=== PATIENT | male | born 1950 | race Caucasian/White ===

== ENCOUNTER → 2020-08-12 10:03 | Outpatient (CLI) | payer BC, SELFPAY ==
[2020-08-12 11:37] LABS: PSA,Total- Diagnostic 7.34 ng/mL (0.0-4.0)
[2020-08-13 15:27] LABS: PSA, Free 0.73 ng/mL; PSA, Free % 10.7 % (.); PSA, Total Ultrasensitive 6.8 ng/mL (0.0-4.0)
== END ==
PROVIDERS: PCP Physician Assistant; Referring Provider Nurse Practitioner Adult Health; Visit Provider Nurse Practitioner Adult Health
DX: R97.20 Elevated prostate specific antigen [PSA] (principal)
CPT/HCPCS: 36415; 84153; 84154

== ENCOUNTER → 2020-09-02 08:00 | Outpatient (CLI) | payer BC, SELFPAY ==
--- NOTE | 2020-09-02 | PROSBIL_PTH ---
PATIENT: CAMMY YANCEY LOC: [facility] U#:[id number] AGE/SX: 75/M ROOM: RE09/02/[address]: Dr. Young Huggins MD : 1950 BED: DIS: SPEC #: [id number] RECD: 09/02/20 12:03 STATUS: NORMA CUCO #: [id number] TORSTEN: 09/02/20 00:[address]: Young Huggins DEPT: SURGICAL PATHOLOGY RECD BY: Ajay Kee ENTERED: 09/02/20 12:03 SP TYPE: PROST BX NEMESIO DR: JOSE Perez Tissues: A - PROSTATE RIGHT B - PROSTATE RIGHT C - PROSTATE RIGHT D - PROSTATE LEFT E - PROSTATE LEFT F - PROSTATE LEFT Procedures: PROSTATE BX HEADER OPERATION: Prostate biopsy PRE-OP DIAGNOSIS: Elevated PSA TISSUE SUBMITTED: A - Right apex, B - Right mid, C - Right base, D - Left apex, E - Left mid, F - Left base MICROSCOPIC DIAGNOSIS A. Right prostate, apex, core biopsy: Prostatic tissue, negative for malignancy. B. Right prostate, mid, core biopsy: Prostatic tissue, negative for malignancy. C. Right prostate, base, core biopsy: Prostatic tissue, negative for malignancy. D. Left prostate, apex, core biopsy: Prostatic tissue, negative for malignancy. E. Left prostate, mid, core biopsy: Prostatic tissue, negative for malignancy. F. Left prostate, base, core biopsy: Prostatic tissue, negative for malignancy. SJ:brittani 09/03/20 MICROSCOPIC DESCRIPTION Slides are reviewed. GROSS DESCRIPTION A - Received is one container designated prostate, right apex. The specimen consists of one elongated fragment of light haji-white soft tissue measuring 0.8 cm in length and 0.1 cm in diameter. The specimen is totally submitted in one cassette. B - Received is one container designated prostate, right mid. The specimen consists of one elongated fragment of light haji-white soft tissue measuring 0.8 cm in length and 0.1 cm in diameter. The specimen is totally submitted in one cassette. C - Received is one container designated prostate, right base. The specimen consists of two elongated fragments of light haji-white soft tissue each measuring 0.5 cm in length and 0.1 cm in diameter. The specimen is totally submitted in one cassette. D - Received is one container designated prostate, left apex. The specimen consists of two elongated fragments of light haji-white soft tissue each measuring 0.7 cm in length and 0.1 cm in diameter. The specimen is totally submitted in one cassette. E - Received is one container designated prostate, left mid. The specimen consists of two elongated fragments of light haji-white soft tissue each measuring 0.8 cm in length and 0.1 cm in diameter. The specimen is totally submitted in one cassette. F - Received is one container designated prostate, left base. The specimen consists of two elongated fragments of light haji-white soft tissue each measuring 0.7 cm in length and 0.1 cm in diameter. The specimen is totally submitted in one cassette. / AM:brittani 09/02/20 TC:5 CPT: 65487 x6
== END ==
PROVIDERS: PCP Physician Assistant; Referring Provider Urology; Visit Provider Urology
DX: R97.20 Elevated prostate specific antigen [PSA] (principal)
CPT/HCPCS: 88305; G0416

== ENCOUNTER → 2022-06-01 | Outpatient (CLI) | payer MEDICARE, SELFPAY | END | disposition home or self-care (01) | LOC: LABSPEC 16:43 | PROVIDERS: PCP Physician Assistant; Visit Provider Urology | DX: R31.0 Gross hematuria (principal) | CPT/HCPCS: 87077; 87086; 87088; 87186 ==

== ENCOUNTER → 2022-06-04 | Outpatient (CLI) | payer MEDICARE, SELFPAY ==
--- NOTE | 2022-06-04 07:19 | CT_ITS ---
STUDY: CT ABDOMEN AND PELVIS WITHOUT CONTRAST REASON FOR EXAM: Male, 71 years old. HEMATURIA RADIATION DOSAGE (If Supplied By Facility): CTDIvol = ( 6.40 ) mGy, DLP = ( 324.54 ) mGycm TECHNIQUE: Transaxial images were obtained from the dome of the diaphragm to the symphysis pubis without oral contrast, and without intravenous contrast. Sagittal and coronal images were reconstructed. Individualized dose optimization techniques were used for this CT. COMPARISON: None. FINDINGS: The visualized lung bases are unremarkable. The visualized portions of the heart are within normal limits. Normal liver. Normal gallbladder and extrahepatic biliary system. Normal spleen. Normal pancreas. Normal bilateral adrenal glands. Normal right kidney. Normal left kidney. Normal visualized stomach. Normal small intestine. Normal colon. There is moderately abundant stool. The appendix is visualized and appears normal. There is diffuse atherosclerotic calcification of the abdominal aorta, without a demonstrated aneurysm. Normal inferior vena cava. Normal retroperitoneum. There is small calcification of the anterior wall of the urinary bladder. There are prostatic calcifications. There is no free fluid in the abdomen or pelvis. There is a left-sided inguinal hernia containing adipose tissue. There is degenerative postoperative change of the spine. There are bilateral pedicle screws fusing posteriorly at L4-5. There is hardware in the L3-[address]/Abdomen/Pelvis without Cont IMPRESSION: No stones or hydronephrosis. Calcifications in the prostate gland and the wall of the urinary bladder. Moderately abundant stool. No obstruction. Electronically Signed: Simeon Marcos MD at 8:09 EDT ,
== END | disposition home or self-care (01) ==
LOC: CT 07:16
PROVIDERS: PCP Physician Assistant; Referring Provider Urology; Visit Provider Urology
DX: R31.9 Hematuria, unspecified (principal)
CPT/HCPCS: 74176

== ENCOUNTER 2022-06-18 09:35 | Emergency (ER) | payer MEDICARE, SELFPAY ==
[2022-06-18 09:36] VITALS: BP 159/81; PULSE 93; RESP 18; TEMP 36.4; O2SAT 98
--- NOTE | 2022-06-18 09:57 | EX.ED.DYSGE1 ---
HPI History of Present Illness Chief Complaint: Complaint Informant: patient Onset/Context/Timing Onset: Today Context: Sudden Onset Timing: Continuous Quality: Burning, sharp Location: Lower abdomen Worsened by: Nothing Relieved by: Nothing Narrative Narrative: Patient presents with lower abdominal pain that began today. Patient states it is over his lower abdomen and radiates into his genital area. Patient describes it as burning but sharp at times. Patient states it is constant. Patient states nothing makes it better nothing makes it worse. Patient admits to some nausea but denies any vomiting. Patient admits to some urinary frequency but denies any dysuria. Patient states he does have some mild low back pain. Patient denies any fevers or chills. [facility] Medical History (Updated 06/18/22 @ 11:[address] Jonathon Elaine DO) Diabetes mellitus Hyperlipemia Hypertension Home Medications cephalexin 500 mg capsule 500 mg PO Q6 #20 CAPSULES 06/18/22 [Rx Last Taken Unknown] phenazopyridine 200 mg tablet (Pyridium) 200 mg PO TID #6 tabs 06/18/22 [Rx Last Taken Unknown] Allergy/AdvReac Type Severity Reaction Status Date / Time No Known Allergies Allergy Verified 06/18/22 09:38 Surgical History History of back surgery Social History Smoking Status: Never smoker ROS ROS ED Constitutional Constitutional ED: Denies chills or fever(s) Eyes Eyes: Denies blurry vision or change in vision ENT ENT ED: Denies rhinorrhea or sore throat Cardiovascular Cardiovascular: Denies chest pain or palpitations Respiratory/Chest Respiratory/Chest: Denies cough or dyspnea Gastrointestinal Gastrointestinal: Reports abdominal pain and nausea; Denies vomiting Genitourinary Genitourinary ED: Reports urinary frequency; Denies dysuria or hematuria Musculoskeletal Musculoskeletal: Reports back pain; Denies neck pain Integumentary Denies abscess or rash Neurologic Neurologic: Denies headache(s) or weakness Allergic/Immunologic Allergic/Immunologic ED: Denies mouth swelling or urticaria EXAM Physical Exam Const Vital Signs: 06/18/22 09:36 06/18/22 10:38 06/18/22 11:12 Temperature 97.6 F L 98.0 F 97.9 F Temperature Source Temporal Oral Oral Pulse Rate 93 90 78 Respiratory Rate 18 17 18 Blood Pressure 159/81 H 152/78 H 143/79 H Blood Pressure Mean 107 102 100 Pulse Ox 98 99 96 Oxygen Delivery Method Room Air Room Air Room Air Positive well nourished and well developed General Appearance ED: well developed HEENT Reports moist mucous membranes Neck supple and no JVD Resp normal respiratory effort and clear to auscultation bilaterally Cardio regular rate, regular rhythm and no murmurs GI normal to inspection, nondistended, normoactive bowel sounds Palpation: soft and tender LLQ, RLQ, LUQ, RUQ, periumbilical and suprapubic; Negative for guarding or rebound tenderness present Extremity normal to inspection General Extremety ED: Negative for edema or tenderness General Extremity: Negative for edema Neuro oriented x3, CN's II-XII intact bilaterally and no sensory deficits noted Sensorium / Orientation: alert Motor Exam: strength 5/5 throughout Psych mental status grossly normal Skin no rashes or lesions noted MDM MDM MDM Narrative Medical decision making narrative: CBC shows a mild anemia with a hemoglobin of 12.5 and hematocrit 37.2. Comprehensive metabolic profile showed a slightly elevated glucose of 259 but was otherwise within normal limits. Urinalysis shows a leukocyte esterase of 500 with 25-50 white blood cells and 2+ bacteria. There were positive nitrites. Occult blood was 150 with 10-25 red blood cells. Urine culture was ordered. Patient was given a dose of Rocephin here. Patient was given a prescription for Keflex. Patient was instructed to follow-up with Dr. Huggins in 3 to 5 days. Patient was also given a prescription for Pyridium. Patient understood and was agreeable with the plan. All questions were answered. Lab Data Attestation: I reviewed the patient's lab results. Labs: Laboratory Results - last 24 hr 06/18/22 06/18/22 06/18/22 10:15 10:15 10:35 WBC 7.8 RBC 4.07 L Hgb 12.5 L Hct 37.2 L MCV 91.4 MCH 30.7 MCHC 33.6 RDW Std Deviation 40.0 RDW Coeff of Nilda 11.9 Plt Count 276 MPV 10.8 Immature Gran % (Auto) 0.300 Neut % (Auto) 84.0 H Lymph % (Auto) 9.0 L Swain % (Auto) 6.3 Eos % (Auto) 0.1 Baso % (Auto) 0.3 Absolute Neuts (auto) 6.6 Absolute Lymphs (auto) 0.70 L Nucleated RBC % 0 Sodium 139 Potassium 4.2 Chloride 102 Carbon Dioxide 30.0 Anion Gap 7 BUN 23 H Creatinine 0.87 Estim Creat Clear Calc 7.39 Est GFR (MDRD) Af Amer 111 Est GFR (MDRD) Non-Af 92 BUN/Creatinine Ratio 26.6 H Glucose 259 H Calcium 9.4 Total Bilirubin 0.80 AST 9 L ALT 21 Alkaline Phosphatase 77 Total Protein 6.6 Albumin 3.6 Globulin 3.0 Albumin/Globulin Ratio 1.2 Urine Color Yellow Urine Clarity Sl. Cloudy Urine pH 7.0 Ur Specific [place] 1.010 Urine Protein 100 H Urine Glucose (UA) 1000 H Urine Ketones 15 H Urine Occult Blood 150 H Urine Nitrite Positive H Urine Bilirubin Negative Urine Urobilinogen Normal Ur Leukocyte Esterase 500 H Urine RBC 10-25 SEEN Urine WBC 25-50 SEEN Ur Squamous Epith Cells 0-5 SEEN Urine Bacteria 2+ Urine Mucus 1+ Discharge Plan Triage Chief Complaint: Complaint ED Provider: Jonathon Elaine Dx/Rx/DC Orders Clinical Impression: Urinary tract infection, Diabetes mellitus Instructions: ED Bladder Infection, Male (Adult), ED Urinary Tract Infections in Men Prescriptions: New phenazopyridine [Pyridium] 200 mg tablet 200 mg PO TID Qty: 6 0RF cephalexin [cephalexin] 500 mg capsule 500 mg PO Q6 Qty: 20 0RF Primary Care Provider: Orlando Magdaleno Referrals: Young Huggins MD [Med Staff - Active Staff] - 3-5 Days Orlando Magdaleno PA [Primary Care Provider] - 5-7 Days Disposition Disposition: Home, Self Care
[2022-06-18 10:27] LABS: Absolute Neutrophil Count 6.6 X10^3/uL (2.0-7.7); Basophil# 0.02 X10^3/uL; Basophil% 0.3 % (0-1); Eosinophil# 0.01 X10^3/uL; Eosinophils% 0.1 % (0-5); Hematocrit 37.2 % (40-54); Hemoglobin 12.5 g/dL (13.0-16.5); Mean Corp Hgb Conc 33.6 g/dL (32-36); Mean Corpuscular Hgb 30.7 pg (27.0-32.0); Mean Corpuscular Volume 91.4 fL (80-94); Mean Platelet Vol. 10.8 fl (6.2-12.0); Monocyte# 0.49 X10^3/uL; Monocyte% 6.3 % (0-10); NRBC Flagged by Analyzer 0 % (0-5); Neutrophil # 6.58 X10^3/uL (2.7-7.7); Platelet Count 276 K/mm3 (150-450); RBC Distribution Width CV 11.9 % (11.6-14.6); Red Blood Count 4.07 M/mm3 (4.6-6.2); White Blood Count 7.8 K/mm3 (4.4-11.0)
[2022-06-18 10:38] VITALS: BP 152/78; PULSE 90; RESP 17; TEMP 36.7; O2SAT 99
[2022-06-18 10:48] LABS: Color, Urine Yellow (Yellow); Glucose, Dipstick 1000 mg/dl (Normal); Ketone-Dipstick 15 mg/dl (Negative); Leukocyte Esterase-Dipstick 500 /ul (Negative); Nitrite-Dipstick Positive (Negative); Occult Blood-Urine 150 /ul (Negative); Protein-Dipstick 100 mg/dl (Negative); Urine Bilirubin Dipstick Negative (Negative); Urine Clarity Sl. Cloudy (Clear); Urine Urobilinogen Normal (Normal)
[2022-06-18 10:54] LABS: Bacteria 2+ /hpf (None Seen); Mucous, Urine 1+ /hpf (<or=2+); Red Blood Cells-Urine 10-25 SEEN /hpf (0-5); Squamous Epithelial Cells - UA 0-5 SEEN /hpf (0-5); White Blood Cells 25-50 SEEN /hpf (0-5)
[2022-06-18 11:03] LABS: ALB/GLOB Ratio 1.2 RATIO (0.9-2.4); AST(SGOT) 9 U/L (15-37); Alanine Aminotransfer ALT/SGPT 21 U/L (16-61); Albumin, Serum 3.6 g/dL (3.2-5.0); Alkaline Phosphatase 77 U/L (45-117); Anion Gap 7 (5-15); BUN 23 mg/dL (7-18); BUN/Creat Ratio 26.6 RATIO (10-20); Calcium,Total 9.4 mg/dL (8.5-10.1); Chloride 102 mmol/L (98-107); Creatinine, Serum 0.87 mg/dL (0.70-1.30); EST Glomerular Filtration Rate 92 mL/min (>60); Est Glom Filt Rate - Afr Amer 111 mL/min (>60); Estimated Creatinine Clearance 7.39 ml/min; Glucose 259 mg/dL (74-106); Potassium 4.2 mmol/L (3.5-5.1); Protein, Total 6.6 g/dL (6.4-8.2); Sodium Level 139 mmol/L (136-145)
[2022-06-18 11:12] VITALS: BP 143/79; PULSE 78; RESP 18; TEMP 36.6; O2SAT 96
[2022-06-18] MEDS: Ceftriaxone 1 GM/50 ML BAG IV (11:15)
[2022-06-18 12:01] VITALS: BP 161/77; PULSE 69; PULSE 85; PULSE 94; RESP 16; TEMP 36.5; O2SAT 97; O2SAT 99
== END 2022-06-18 12:07 | disposition home or self-care (01) ==
PROVIDERS: Emergency Provider Emergency Medicine; PCP Physician Assistant; Visit Provider Emergency Medicine
DX: N39.0 Urinary tract infection, site not specified (principal); E11.9 Type 2 diabetes mellitus without complications; E78.5 Hyperlipidemia, unspecified; I10 Essential (primary) hypertension
CPT/HCPCS: 80053; 81001; 85025; 87077; 87086; 87088; 87186; 96365; 99283; J7050; A4216

== ENCOUNTER 2022-07-07 15:44 | Observation (INO) | payer MEDICARE, SELFPAY ==
--- NOTE | 2022-06-29 10:46 | EKG12_ITS ---
Test Reason : PREOP Blood Pressure : / mmHG Vent. Rate : 083 BPM Atrial Rate : 083 BPM P-R Int : 184 ms QRS Dur : 080 ms QT Int : 382 ms P-R-T Axes : 106 059 057 degrees QTc Int : 448 ms Normal sinus rhythm Normal ECG Confirmed by LELE BAUTISTA, PILLO ([id number]), film or videotape editor REBECCA OCASIO ([id number]) on 06/30/2022 11:08:40 AM Referred By: Young Huggins Confirmed By:PILLO ROYAL MD
[2022-06-29 11:51] LABS: Partial Thromboplast Time 30.2 Seconds (24.1-36.2); Prothrombin Time (Protime)PT. 12.9 SECONDS (11.7-14.9)
[2022-06-29 12:34] LABS: Hemoglobin A1c 9.3 % (3.8-5.6)
[2022-06-29 12:39] LABS: AST(SGOT) 12 U/L (15-37); Alanine Aminotransfer ALT/SGPT 18 U/L (16-61); Alkaline Phosphatase 87 U/L (45-117); Anion Gap 10 (5-15); BUN 22 mg/dL (7-18); BUN/Creat Ratio 21.4 RATIO (10-20); Bilirubin, Direct 0.14 mg/dL (0.00-0.30); Calcium,Total 9.3 mg/dL (8.5-10.1); Chloride 100 mmol/L (98-107); Creatinine, Serum 1.03 mg/dL (0.70-1.30); EST Glomerular Filtration Rate 75 mL/min (>60); Est Glom Filt Rate - Afr Amer 91 mL/min (>60); Globulin 2.9 g/dL (2.2-4.2); Glucose 289 mg/dL (74-106); Potassium 3.9 mmol/L (3.5-5.1); Protein, Total 6.9 g/dL (6.4-8.2); Sodium Level 137 mmol/L (136-145)
[2022-07-07] VITALS (10 sets, daily range): BP systolic 132–168; BP diastolic 67–81; PULSE 63–81; RESP 16–18; TEMP 36.1–36.6; O2SAT 97–100; BMI 24.1; BMI 24.3
[2022-07-07] MEDS: Lactated Ringers 1,000 ML 15 ML IV (13:16)
--- NOTE | 2022-07-07 15:00 | PROS_PTH ---
PATIENT: CAMMY YANCEY LOC: U U#:[id number] AGE/SX: 71/M ROOM: [facility] RE07/07/[address]: Dr. Young Huggins MD : 1950 BED: 1 DIS: 07/08/2022 SPEC #: [id number] RECD: 07/08/22 10:58 STATUS: NORMA NORWOOD #: [id number] TORSTEN: 07/07/22 15:[address]: Young Huggins DEPT: SURGICAL PATHOLOGY RECD BY: Julianne Neff ENTERED: 07/08/22 11:29 SP TYPE: TURP OTHR DR: JOSE Perez Tissues: Prostate, NOS Procedures: Surgery Specimen Level IV HEADER OPERATION: Cysto, TUR prostate, [place], bladder biopsy PRE-OP DIAGNOSIS: BPH with obstruction TISSUE SUBMITTED: Prostate tissue MICROSCOPIC DIAGNOSIS Prostate tissue, transurethral resection: Benign prostatic hyperplasia, glandular and stromal type. Focal acute and chronic inflammation and basal cell hyperplasia. PRECIOUS:brittani 07/09/2022 MICROSCOPIC DESCRIPTION Slides are reviewed. GROSS DESCRIPTION Received is one container labeled with the patient's name and designated prostate tissue. The specimen consists of multiple irregular fragments of pink-haji, rubbery, soft tissue that in aggregate weigh 1.5 gm and measure in aggregate 5 x 3 x 0.2 cm. The entire specimen is submitted in two cassettes. / PRECIOUS:brittani 07/08/2022 TC:5 CPT: 22488
[2022-07-07] MEDS: Cefazolin 2 GM in 0.9% Normal Saline 100 ML IV (15:03)
[2022-07-07 15:15] LABS: Bedside Glucose 152 mg/dL (74-106)
--- NOTE | 2022-07-07 15:47 | DCINST_ITS ---
Discharge Instructions Diet Discharge Diet: No restrictions Dressing / Incision Call your doctor if your incision/area has: Continuous Slow Oozing, Increased Pain/ Swelling, Increased Redness and Foul Smelling Discharge Call your doctor if you observe: Fever of 101 or Higher, Numbness or Tingling, Shortness of breath, Dizziness, Calf discomfort and Uncontrolled pain Follow Up Care Please Follow Up With: Young Huggins MD When: 2 weeks follow-up Test Results: Test results from this visit will be discussed in further detail at your follow- up appointment, if applicable. Discharge Plan Admission Primary Reason for Your Visit: marlene Attending Provider: Young Huggins Primary Care Provider: Orlando Magdaleno Instructions Patient Instructions: MARLENE Home Recovery Discharge Orders/Prescriptions Prescriptions: New ciprofloxacin HCl [Cipro] 500 mg tablet 500 mg PO BID Qty: 10 0RF Continued pioglitazone 15 mg Tablet 15 mg PO QHS glyburide 5 mg Tablet 5 mg PO BID donepezil 10 mg Tablet 10 mg PO QHS amlodipine 5 mg Tablet 5 mg PO DAILY simvastatin 20 mg Tablet 20 mg PO QHS metformin 1,000 mg Tablet 1,000 mg PO BID lisinopril-hydrochlorothiazide 20-25 mg Tablet 1 tab PO DAILY magnesium 500 mg Tablet 500 mg PO DAILY Discontinued tamsulosin 0.4 mg Capsule 0.4 mg PO QHS Referrals / Follow Up: Orlando Magdaleno PA [Primary Care Provider] - Disposition Disposition (needs filled in before D/C Order can be placed): Home, Self Care
--- NOTE | 2022-07-07 15:47 | PCM.HP.STD ---
HPI - General HPI Narrative CAMMY YANCEY, is a 71 M who presents for a TURP for BPH and obstruction PFSH Medical History (Updated 06/28/22 @ 10:32 by Stacie Abel) Arthritis Back pain CPAP (continuous positive airway pressure) dependence Diabetes mellitus Dietary restriction Easy bruising Forgetfulness History of stress test Hyperlipemia Hypertension Leg cramps Loss of hearing Neuropathy Non-smoker Prostate disease Wears glasses Wears partial dentures Home Medications amlodipine 5 mg tablet 5 mg PO DAILY 06/28/22 [History Last Taken 07/07/22 07:30] donepezil 10 mg tablet 10 mg PO QHS 06/28/22 [History Last Taken Unknown] glyburide 5 mg tablet 5 mg PO BID 06/28/22 [History Last Taken Unknown] lisinopril 20 mg-hydrochlorothiazide 25 mg tablet 1 tab PO DAILY 06/28/22 [History Last Taken Unknown] magnesium 500 mg tablet 500 mg PO DAILY 06/28/22 [History Last Taken Unknown] metformin 1,000 mg tablet 1,000 mg PO BID 06/28/22 [History Last Taken Unknown] pioglitazone 15 mg tablet 15 mg PO QHS 06/28/22 [History Last Taken Unknown] simvastatin 20 mg tablet 20 mg PO QHS 06/28/22 [History Last Taken Unknown] ciprofloxacin HCl 500 mg tablet (Cipro) 500 mg PO BID #10 tabs 07/07/22 [Rx Last Taken Unknown] Allergy/AdvReac Type Severity Reaction Status Date / Time No Known Allergies Allergy Verified 07/07/22 13:05 Surgical History (Updated 06/28/22 @ 10:32 by Stacie Abel) History of back surgery History of carpal tunnel surgery of left wrist History of carpal tunnel surgery of right wrist History of fusion of lumbar spine Hx of arthroscopic knee surgery Hx of arthroscopic knee surgery Hx of left inguinal hernia repair Hx of repair of left rotator cuff Hx of repair of right rotator cuff Hx of right inguinal hernia repair Social History Smoking Status: Never smoker Vital Signs Vital Signs Vital Signs: 07/07/22 13:13 07/07/22 13:13 Temperature 97.4 F L Temperature Source Temporal Pulse Rate 79 Respiratory Rate 16 Respiratory Pattern Normal Blood Pressure 139/74 H Blood Pressure Mean 95 Blood Pressure Source Monitor Blood Pressure Position Semi-Fowlers Blood Pressure Location Right Arm Pulse Ox 100 Oxygen Delivery Method Room Air Weight Weight: 70 kg Body Mass Index (BMI) 24.1 Results Lab / Micro Data Result Diagrams: 06/29/22 11:14 Labs: Laboratory Results - last 24 hr 07/07/22 13:10: POC Glucose 152 H
--- NOTE | 2022-07-07 15:48 | PCM.OPRPT ---
Report of Operation Date of Procedure: 07/07/22 Pre-Operative Diagnosis: BPH with obstruction Post-Operative Diagnosis: Same Surgery/Procedure Performed:: Transurethral section of prostate Description of Surgical Findings:: In the preoperative setting I discussed with the patient how the surgery would be done with expect afterwards. We discussed how a prostate resection is done and we discussed the risk of the surgery including, bleeding, infection, retrograde ejaculation, changes with ejaculation or intercourse,. We discussed the possibility that the resection of the prostate may not alleviate his urinary symptoms. We discussed the small risk of developing scar tissue along the urethral channel and strictures. We also discussed the chance of the prostate could grow back and he may need further surgery or treatment in the future for prostate problems. Patient was taken back to the operating room, timeout procedure was performed, he was identified and marked and placed on the operating room table. He underwent general anesthesia. He was placed in dorsolithotomy position. Penis and testicles were prepped and draped in usual sterile fashion. Went into the bladder using the visual obturator with a resectoscope. Once inside the bladder identified the right and left ureteral orifice. I then identified the prostate and the anatomy of the prostate. I marked out the area of the sphincter and the verumontanum was identified. I then proceeded with the prostate resection first resected the median lobe. And then resected the right lobe of the prostate. Then to resect the left lobe of the prostate. I then resected the apical tissue of the prostate. This was a complete resection of all obstructive tissue to improve voiding and relieve obstruction. I then made sure that there was no injury to the sphincter or the verumontanum was still intact. At the end of the resection all the chips were Ellik out of the bladder. I then identified the left and right ureteral orifice and these were confirmed to be in good position and effluxing and not injured. The resectoscope was removed, a 22 Romansh catheter was placed into the bladder on continuous irrigation. And the urine was fairly light pink color and draining normally. He was taken back to the PACU in good condition. CPT 59030 Surgeon: Young Huggins Type of Anesthesia: General Drains: 22fr Admit VTE Documentation VTE Present on Admission: No VTE Mechan Device Prophylaxis: SCD's VTE Pharm Prophylaxis ordered?: No
[2022-07-07] MEDS: Lactated Ringers 1,000 ML 125 ML IV (17:45)
[2022-07-07] MEDS: Ciprofloxacin 400 MG/200 ML BAG 200 MG IV (20:40)
[2022-07-07] MEDS: Atorvastatin Calcium 10 MG Tablet PO (20:41)
[2022-07-07] MEDS: Docusate Sodium 100 MG Capsule 200 MG PO (20:41)
[2022-07-07] MEDS: Pioglitazone Hydrochloride 15 MG Tablet PO (20:42)
[2022-07-07] MEDS: Donepezil HCl 10 MG Tablet PO (20:43)
[2022-07-08] MEDS: Lactated Ringers 1,000 ML 125 ML IV (02:12)
[2022-07-08 02:31] VITALS: BP 136/72; PULSE 70; RESP 18; TEMP 36.1; O2SAT 99
[2022-07-08 03:00] VITALS: BP 135/64; PULSE 80; RESP 16; TEMP 36.3; O2SAT 98
--- NOTE | 2022-07-08 07:48 | PCM.PN.GU ---
Subjective Subjective s/p turp doing well d/c stone home after voids Objective Data Objective Data Vital Signs: Vital Signs Temp Pulse Resp BP Pulse Ox O2 Del Method 97.4 F L 80 16 135/64 H 98 Room Air 07/08/22 03:00 07/08/22 03:00 07/08/22 03:00 07/08/22 03:00 07/08/22 03:00 07/08/22 03:00 Oxygen Delivery Method Room Air Weight: 70.3 kg Body Mass Index (BMI) 24.3 Intake & Output: Intake and Output for Last 24 Hours 07/06/22 07/07/22 07/08/22 23:59 23:59 23:59 Intake Total 594.75 / 594.75 1000 / 1000 Output Total 700 / 700 2500 / 2500 Balance -105.25 / -105.25 -1500 / -1500 Lab / Micro Data Result Diagrams: 06/29/22 11:14 Labs: Laboratory Results - last 24 hr 07/07/22 13:10: POC Glucose 152 H
[2022-07-08 07:49] VITALS: BP 135/68; PULSE 58; RESP 17; TEMP 36.7; O2SAT 97
[2022-07-08 08:00] VITALS: BP 135/68; PULSE 58; RESP 17; TEMP 36.7; O2SAT 97
[2022-07-08] MEDS: Magnesium Chloride 64 MG Delay Rel.Tablet 128 MG PO (08:39)
[2022-07-08] MEDS: amLODIPine 5 MG Tablet PO (08:39)
[2022-07-08] MEDS: Lisinopril 20 MG Tablet PO (08:39)
[2022-07-08] MEDS: hydroCHLOROthiazide 25 MG Tablet PO (08:40)
[2022-07-08] MEDS: metFORMIN HCl 1,000 MG Tablet 1000 MG PO (08:40)
[2022-07-08] MEDS: Docusate Sodium 100 MG Capsule 200 MG PO (08:41)
--- NOTE | 2022-07-08 09:21 | NUR.TO.PHY ---
stone removed at 0900. pt urinated 50 ml shortly after. urine was bright red with three clots. pt stated that there was no pain. pt advised to continue drinking water and walking around room. will monitor.
[2022-07-08] MEDS: FLU VACC QS2022-23(6MOS UP)/PF 60 MCG/0.5 ML SYRINGE IM (11:36)
== END 2022-07-08 07:48 | disposition home or self-care (01) ==
LOC: SDC 16:50 → PCU 16:50
PROVIDERS: Anesthesiology; Admitting Provider Urology; PCP Physician Assistant; Referring Provider Urology; Visit Provider Urology
PROC: (CPT 52601; principal; 2022-07-07 14:50)
DX: N40.1 Benign prostatic hyperplasia with lower urinary tract symptoms (principal); E11.40 Type 2 diabetes mellitus with diabetic neuropathy, unspecified; I10 Essential (primary) hypertension; E78.5 Hyperlipidemia, unspecified; N13.8 Other obstructive and reflux uropathy; Z79.899 Other long term (current) drug therapy; D41.4 Neoplasm of uncertain behavior of bladder; R31.0 Gross hematuria; Z23 Encounter for immunization
CPT/HCPCS: 52601; 00914; 36415; 80048; 80076; 82962; 83036; 85610; 85730; 88305; 93005; 96361; 96365; 99218; G0008; J7120; 90686; G0378; J0744; J2405

== ENCOUNTER → 2023-11-24 | Outpatient (CLI) | payer MEDICARE, SELFPAY ==
--- OUTSIDE RECORDS SUMMARY | 2023-11-24 08:23 | XMS RPT_ITS | CCD ---
Author Name Unknown Address [address] [place] [address] Organization [facility] Care Team Providers Care Family Preservation Worker Name Role Phone Orlando Magdaleno Seble Primary Care Provider GILDA GUZMAN Primary Care Unava ilable Medications Current Medications Medication Drug Class(es) Dates Sig (Normalized) Sig (Original) calcium chloride 0.0014 meq/ml / potassium chloride 0.004 meq/ml / sodium chloride 0.103 meq/ml / sodium lactate 0.028 meq/ml injectable solution (2 sources) Start: 03-30-2021 lactated ringers infusion 1 ml diphenhydrAMINE hydrochloride 50 mg/ml cartridge (1 source) Histamine-1 Receptor Antagonist Start: 03-30-2021 End: 03-30-2021 diphenhydrAMINE (BENADRYL) injection 12.5 mg glyBURIDE 5 mg oral tablet (2 sources) Sulfonylurea Start: 02-26-2020 glyBURIDE (DIABETA) 5 MG tablet Indications: Type 2 diabetes mellitus without complication, without long-term current use of insulin (HCC) TAKE 2 TABLETS IN THE MORNING AND 1 TABLET IN THE EVENING 270 tablet 0 02/26/2020 Suspended 1 ml hydrALAZINE hydrochloride 20 mg/ml injection (1 source) Arteriolar Vasodilator Start: 03-30-2021 hydrALAZINE (APRESOLINE) injection 5 mg labetalol hydrochloride 5 mg/ml injectable solution (1 source) beta-Adrenergic Amanuel Start: 03-30-2021 labetalol (NORMODYNE;TRANDATE ) injection 5 mg 10 ml lidocaine hydrochloride 10 mg/ml injection (1 source) Antiarrhythmic, Amide Local Anesthetic Start: 03-30-2021 End: 03-30-2021 lidocaine PF 1 % injection 1 mL 24 hr metFORMIN hydrochloride 500 mg extended release oral tablet (2 sources) Biguanide Start: 09-27-2019 take 2 tablets by mouth twice daily at mealtime metFORMIN (GLUCOPHAGE-XR) 500 MG extended release tablet Indications: Type 2 diabetes mellitus without complication, without long-term current use of insulin (HCC) Take 2 tablets by mouth 2 times daily (with meals) 360 tablet 1 09/27/2019 Suspended moxifloxacin 5 mg/ml ophthalmic solution (1 source) Quinolone Antimicrobial Start: 03-30-2021 moxifloxacin (VIGAMOX) 0.5 % ophthalmic solution 1 drop nepafenac 1 mg/ml ophthalmic suspension (1 source) Nonsteroidal Anti-inflammatory Drug Start: 03-30-2021 nepafenac (NEVANAC) 0.1 % ophthalmic suspension 1 drop 2 ml ondansetron 2 mg/ml injection (1 source) Serotonin-3 Receptor Antagonist Start: 03-30-2021 End: 03-30-2021 ondansetron (ZOFRAN) injection 4 mg phenylephrine hydrochloride 25 mg/ml ophthalmic solution (1 source) alpha-1 Adrenergic Agonist Start: 03-30-2021 phenylephrine (MYDFRIN) 2.5 % ophthalmic solution 1 drop prednisoLONE acetate 10 mg/ml ophthalmic suspension (1 source) Corticosteroid Start: 03-30-2021 prednisoLONE acetate (PRED FORTE) 1 % ophthalmic suspension 1 drop 1 ml promethazine hydrochloride 25 mg/ml injection (1 source) Phenothiazine Start: 03-30-2021 End: 03-30-2021 promethazine (PHENERGAN) injection 6.25 mg 50 ml sodium chloride 9 mg/ml injection (1 source) Start: 03-30-2021 End: 03-30-2021 0.9 % sodium chloride bolus tropicamide 10 mg/ml ophthalmic solution (1 source) Anticholinergic Start: 03-30-2021 tropicamide (MYDRIACYL) 1 % ophthalmic solution 1 drop Completed/Discontinued Medications Medication Drug Class(es) Dates Sig (Normalized) Sig (Original) amLODIPine 5 mg oral tablet (2 sources) Dihydropyridine Calcium Channel Amanuel Start: 9 take 1 tablet by mouth once daily amLODIPine (NORVASC) 5 MG tablet Indications: Essential hypertension, benign Take 1 tablet by mouth daily 90 tablet 1 09/27/2019 Suspended hydroCHLOROthiazide 25 mg / lisinopril 20 mg oral tablet (2 sources) Thiazide Diuretic, Angiotensin Converting Enzyme Inhibitor Start: 9 take 1 tablet by mouth once daily lisinopril-hydro chlorothiazide (PRINZIDE;ZESTOR ETIC) 20-25 MG per tablet Indications: Essential hypertension, benign Take 1 tablet by mouth daily 90 tablet 1 09/27/2019 Suspended 24 hr oxybutynin chloride 10 mg extended release oral tablet (2 sources) Cholinergic Muscarinic Antagonist take 1 tablet by mouth once daily oxybutynin (DITROPAN-XL) 10 MG extended release tablet Take 10 mg by mouth daily 0 Suspended pioglitazone 15 mg oral tablet (2 sources) Peroxisome Proliferator Receptor alpha Agonist, Peroxisome Proliferator Receptor gamma Agonist, Thiazolidinedione take 1 tablet by mouth once daily pioglitazone (ACTOS) 15 MG tablet Take 15 mg by mouth daily 0 Suspended simvastatin 20 mg oral tablet (2 sources) HMG-CoA Reductase Inhibitor Start: 0 take 1 tablet by mouth once daily simvastatin (ZOCOR) 20 MG tablet TAKE 1 TABLET BY MOUTH EVERY DAY EVERY NIGHT 90 tablet 0 02/14/2020 Suspended Problems Active Problems Problem Classification Problem Date Documented Da te Episodic/Chronic Cataract (2 sources) Senile combined form cataract of right eye; Translations: [Combined forms of age-related cataract, right eye] Onset: 03-26-2021 Resolved: 03-30-2021 Chronic Diabetes mellitus without complication (2 sources) Type 2 diabetes mellitus without complication; Translations: [Type 2 diabetes mellitus without complications] Onset: 07-08-2016 07-08-2016 Chronic Disorders of lipid metabolism (2 sources) Hyperlipidemia; Translations: [Hyperlipidemia, unspecified] 12-22-2015 Chronic Essential hypertension (2 sources) Benign essential hypertension; Translations: [Essential (primary) hypertension] Onset: 10-27-2016 10-27-2016 Chronic Other connective tissue disease (2 sources) Tear of right rotator cuff; Translations: [Tear of right rotator cuff, unspecified tear extent, unspecified whether traumatic] Onset: 04-18-2020 04-18-2020 Other injuries and conditions due to external causes (2 sources) Injury of superior glenoid labrum of shoulder joint; Translations: [Superior glenoid labrum lesion of right shoulder, initial encounter] Onset: 04-18-2020 04-18-2020 Episodic Past or Other Problems Problem Classification Problem Date Documented Da te Episodic/Chronic Other connective tissue disease (1 source) Tear of right rotator cuff; Translations: [Unspecified rotator cuff tear or rupture of right shoulder, not specified as traumatic] Onset: 04-18-2020 04-18-2020 Episodic Sprains and strains (4 sources) Traumatic rupture of biceps tendon; Translations: [Strain of muscle, fascia and tendon of other parts of biceps, right arm, initial encounter] Onset: 04-18-2020 04-18-2020 Episodic Results Test Name Value Interpretation Reference Range Facil ity Vital Signs Date Time Vital Sign Value Performing Clinician Faci lity 03-30-2021 09:17-0400 Body temperature 97.5 [degF] Dia Moyer MD Work Phone: [facility] Work Phone: 03-30-2021 09:17-0400 Diastolic blood pressure 77 mm[Hg] Dia Moyer MD Work Phone: [facility] Work Phone: 03-30-2021 09:17-0400 Heart rate 53 /min Dia Moyer MD Work Phone: [facility] Work Phone: 03-30-2021 09:17-0400 Respiratory rate 18 /min Dia Moyer MD Work Phone: [facility] Work Phone: 03-30-2021 09:17-0400 SaO2% (BldA) [Mass fraction] 99 % Dia Moyer MD [facility] Work Phone: 03-30-2021 09:17-0400 Systolic blood pressure 135 mm[Hg] Dia Moyer MD Work Phone: [facility] Work Phone: 03-30-2021 06:49-0400 Body height 170.2 cm Dia Moyer MD [facility] Work Phone: 03-30-2021 06:49-0400 Body mass index (BMI) [Ratio] 23.49 kg/m2 Dia Moyer MD Work Phone: [facility] Work Phone: 03-30-2021 06:49-0400 Body weight 68.04 kg Dia Moyer MD Work Phone: [facility] Work Phone: Encounters Encounter Date Encounter Type Care Provider Facility Start: 04-01-2023 ambulatory GILDA GUZMAN Facility:[facility] Start: 03-30-2021 End: 03-30-2021 Subsequent hospital visit by physician Dia Moyer MD Work Phone: [facility] Procedures Date Procedure Procedure Detail Performing Clinician Start: 03-30-2021 OPERATIVE REPORT 3m Sca nning Start: 03-30-2021 Gluc bld gluc mntr d ev cleared fda spec home use Dia Moyer MD Work Phone: Start: 03-30-2021 Gluc bld gluc mntr d ev cleared fda spec home use Dia Moyer MD Work Phone: Start: 08-18-2020 Mri upper extremity oth than jt w/o contr philipl Jerald Hutchinson Work Phone: Start: 08-18-2020 Mri any jt upper extremity w/o contrast philipl Jerald Hutchinson Work Phone: Plan of Treatment Date Care Activity Detail Author Start: 11-10-2021 Screening for malignant neoplasm of colon Colon cancer screen colonoscopy [place], [place] Start: 04-06-2021 End: 04-06-2021 Patient encounter procedure 04/06/2021 Office Visit Sports Medicine Parveen Pinzon MD [address] [facility] [address] [place], [place] [id number] [facility] [place] Start: 09-27-2020 HbA1c (Bld) [Mass fraction] A1C test (Diabetic or Prediabetic) [place], [place] Start: 09-27-2020 Hemoglobin A1c measurement A1C test (Diabetic or Prediabetic) [facility] Work Phone: Start: 08-29-2020 End: 08-29-2020 Office Visit 08/29/2020 Office Visit Orthopedic Surgery Jerald Hutchinson MD [address] [facility] [address] [place] [address] [phone] [facility] [place] Start: 06-10-2020 Influenza vaccination Flu vaccine (#1) [place], [place] Start: 01-28-2020 Creatinine measurement Creatinine monitoring [place], [place] Start: 01-28-2020 Diabetic microalbuminuria test Diabetic microalbuminuria test [place], [place] Start: 01-28-2020 Lipid panel Lipid screen [place] Start: 01-28-2020 Potassium monitoring Potassium monitoring [place] Start: 11-14-2019 Diabetic retinal exam Diabetic retinal exam [place], [place] Start: 07-18-2019 Diabetic foot examination Diabetic foot exam [place], [place] Start: 1999 Shingles Vaccine (1 of 2) Shingles Vaccine (1 of 2) [place], [place] Start: 1968 DTaP/Tdap/Td vaccine (1 - Tdap) DTaP/Tdap/Td vaccine (1 - Tdap) [place], [place] End: 03-30-2021 Intermittent pulse oximetry Pulse Oximetry Spot Check Respiratory Care Routine One Time for 1 Occurrences starting 03/30/2021 until 03/30/2021 [facility] Work Phone: Immunizations Immunization Date Immunization Notes Care Provider Fa cility 02-06-2019 pneumococcal polysac charide vaccine, 23 valent [place], [place] 08-02-2017 influenza, high dose seasonal, preservative-free [place], [place] 11-06-2016 Influenza Vaccine, unspecified formulation [place], [place] 10-27-2016 pneumococcal conjuga te vaccine, 13 valent [place], [place] Payers Date Payer Category Payer Unknown [facility] [id number] 2018-Present [phone] [address] [place] [address] Indemnity [id number] 2017 Unknown [id number] Social History Date Type Detail Facility Start: 08-05-2020 End: 03-30-2021 Tobacco smoking status NHIS Never smoker [place] Start: 08-05-2020 End: 03-30-2021 Tobacco use and exposure Never used [place], [place] Start: 08-05-2020 Alcohol intake Current non-dr visitor services assistant of alcohol (finding) [place], [place] Start: 1950 Sex Assigned At Not on file M [place], [place] Start: 03-30-2021 Alcohol intake Current drinke r of alcohol (finding) [facility] Work Phone: Start: 03-30-2021 Alcohol Comment rarely [facility] Work Phone: Exposure to SARS-CoV -2 (event) Not sure [facility] Goals Date Patient Goal Desired Activity /State History of Present illness Narrative 03-30-2021 Sil Bates RN - 03/30/2021 9:30 AM EDT Note Date & Type Note Facility 03-30-2021 History of Present illness Narrative Able to get dressed without assistance and states ready to go home. Denies pain. Discharge instructions reviewed with patient and he repeats back information. Provided with copy. documented in this encounter [facility] Work Phone: Evaluation note Note Date & Type Note Facility documented in this encounter [facility] Work Phone: Hospital Discharge instructions Instructions Note Date & Type Note Facility Hospital Discharge instructions Dia Moyer MD - 03/30/2021 Post-Operative Cataract Instructions You may take the patch and shield off and start taking eye drops 4 hours after leaving the hospital. Your vision will be blurry. Starting drops will accelerate your healing process. After using the eye drops, replace the metal or plastic eye shield over the operative eye using a single piece of take Do NOT reapply the cotton patch. PREDNISOLONE ACETATE 1%: Apply 1 drop to the surgical eye EVERY HOUR while awake. VIGAMOX: Apply 1 drop to the surgical eye EVERY 2 HOUR while awake. NEVANAC: Apply 1 drop to the surgical eye EVERY 2 HOUR while awake. Wait 5 minutes in between eye drops. The order does not matter. Continue taking the drops in this manner until your appointment tomorrow. What to Expect at Home Your Recovery: After surgery, your eye will not hurt. But it may feel scratchy, sticky, or uncomfortable. It may also water more than usual. Most people see better 1 to 3 days after surgery. But it could take 3 to 10 weeks to get the full benefits of surgery and to see as clearly as possible. Your doctor may send you home with a bandage, patch, or clear shield on your eye. This will keep you from rubbing your eye. Your doctor will also give you eyedrops to help your eye heal. Use them exactly as directed. You can read or watch TV right away, but things may look blurry. Most people are able to return to work or their normal routine in 1 to 3 days. After your eye heals, you may still need to wear glasses, especially for reading. This care sheet gives you a general idea about how long it will take for you to recover. But each person recovers at a different pace. Follow the steps below to get better as quickly as possible. How can you care for yourself at home? Activity Rest when you feel tired. Getting enough sleep will help you recover. You may have trouble judging distances for a few days. Move slowly, and be careful going up and down stairs and pouring hot liquids. Ask for help if you need it. Ask your doctor when it is okay to drive. Wear your eye bandage, patch, or shield for as long as your doctor recommends. You may only need to wear it when you sleep. You can shower or wash your hair the day after surgery. Keep water, soap, shampoo, hair spray, and shaving lotion out of your eye, especially for the first week. Do not rub or put pressure on your eye for at least 1 week. Do not wear eye makeup for 1 to 2 weeks. You may also want to avoid face cream or lotion. Do not get your hair colored or permed for 10 days after surgery. Do not bend over or do any strenuous activities, such as biking, jogging, weight lifting, or aerobic exercise, for 2 weeks or until your doctor says it is okay. Avoid swimming, hot tubs, gardening, and dusting for 1 to 2 weeks. Wear sunglasses on bright days for at least 1 year after surgery. Medicines Your doctor will tell you if and when you can restart your medicines. He or she will also give you instructions about taking any new medicines. If you take blood thinners, such as warfarin (Coumadin), clopidogrel (Plavix), or aspirin, be sure to talk to your doctor. He or she will tell you if and when to start taking those medicines again. Make sure that you understand exactly what your doctor wants you to do. Follow your doctor's instructions for when to use your eyedrops. Always wash your hands before you put your drops in. To put in eyedrops: -Tilt your head back, and pull your lower eyelid down with one finger. -Drop or squirt the medicine inside the lower lid. -Close your eye for 30 to 60 seconds to let the drops or ointment move around. -Do not touch the ointment or dropper tip to your eyelashes or any other surface. Follow your doctor's instructions for taking pain medicines. Follow-up care is a branch part of your treatment and safety. Be sure to make and go to all appointments, and call your doctor if you are having problems. It's also a good idea to know your test results and keep a list of the medicines you take. When should you call for help? Call 911 anytime you think you may need emergency care. For example, call if: You passed out (lost consciousness). You have severe trouble breathing. You have sudden chest pain and shortness of breath, or you cough up blood. Call your doctor now or seek immediate medical care if: You have eye pain. You have pus draining from your eye. Your vision gets worse. Your eye is still red and bloodshot after 3 or 4 days. You notice new floaters, flashes of light, or changes in your field of vision. Watch closely for changes in your health, and be sure to contact your doctor if you have any problems. documented in this encounter [facility] Work Phone: Summary Purpose Family History No Family History Records FoundNo Family History Records FoundNo Family History Records FoundNo Family History Records FoundNo Family History Records FoundNo Family History Records FoundNo Family History Records Found Advance Directives No Advanced Directives Records FoundDocuments on File Type Date Recorded Patient Wet Room Supervisor Expl anation ACP-Advance Directive ACP-Power of Gyn Physician Documents on File Type Date Recorded Patient Wet Room Supervisor Expl anation ACP-Advance Directive ACP-Power of Gyn Physician Latest Code Status on File Code Status Date Activated Date Inactivated Comments Full Code 03/30/2021 6:29 AM Reason for Referral Status Reason Specialty Diagnoses / Procedures Referred By Contact Referred To Contact Authorized Radiology Diagnoses Tear of right rotator cuff, unspecified tear extent, unspecified whether traumatic Traumatic rupture of right proximal biceps tendon, initial encounter Superior glenoid labrum lesion of right shoulder, initial encounter Procedures MRI Upper Extremity Right W JT WO Contrast Jerald Hutchinson MD [address] [facility] [address] [place] [address] Assessments Diagnosis Tear of right rotator cuff, unspecified tear extent ([facility]WC) Traumatic rupture of right proximal biceps tendon (BWC) Superior glenoid labrum lesion of right shoulder (BWC) Additional Source Comments (unrecognized sect ion and content) No Status Records FoundNo Status Records FoundNo Status Records FoundNo Status Records FoundNo Status Records FoundNo Status Records FoundNo Status Records Found INFORMATION SOURCE (unrecogn ized section and content) DATE CREATED AUTHOR AUTHOR'S ORGANIZ ATION 08/22/2019 [employer] DATE CREATED AUTHOR AUTHOR'S ORGANIZ ATION 08/02/2020 [facility] DATE CREATED AUTHOR AUTHOR'S ORGANIZ ATION 08/29/[address] [facility] DATE CREATED AUTHOR AUTHOR'S ORGANIZ ATION 04/01/[address] [facility] DATE CREATED AUTHOR AUTHOR'S ORGANIZ ATION 04/02/2023 [facility] DATE CREATED AUTHOR AUTHOR'S ORGANIZ ATION 09/02/2023 [facility] Scheduled Active and Recently Administ ered Medications (unrecognized section and content) Continuous Medication Order 03/28/2021 03/29/2021 03/30/2021 lactated ringers infusion Intravenous, at 50 mL/hr, CONTINUOUS, Starting on Tue03/30/21 at 0645, Pre-op (day of surgery) 0645 (Due) lactated ringers infusion Intravenous, at 50 mL/hr, CONTINUOUS, Starting on Tue03/30/21 at 0645, Upon admission to sameday - please start iv if patient does not have iv access. Use 500ml NS for patients on dialysis., Pre-op (day of surgery) 0645 (Due) PRN Medication Order 03/28/2021 03/29/2021 03/30/2021 0.9 % sodium chloride bolus 500 mL (7.35 mL/kg), Intravenous, at 250 mL/hr, Administer over 2 Hours, ONCE PRN, Nausea, Starting on Tue03/30/21 at 0833, For 1 dose, PACU only diphenhydrAMINE (BENADRYL) injection 12.5 mg 12.5 mg, Intravenous, ONCE PRN, Itching, Starting on Tue03/30/21 at 0833, For 1 dose, PACU only hydrALAZINE (APRESOLINE) injection 5 mg 5 mg, Intravenous, EVERY 10 MIN PRN, High Blood Pressure, Starting on Tue03/30/21 at 0833, PRN for SBP > 160 for 2 consecutive measurements, and if one of the following conditions is met: 1) If IV labetolol is ineffective. 2) If HR is under 60. 3) If patient has heart block, COPD or asthma. If both labetalol and hydralazine ineffective, notify anesthesiologist., PACU only labetalol (NORMODYNE;TRANDATE) injection 5 mg 5 mg, Intravenous, EVERY 10 MIN PRN, High Blood Pressure, Starting on Tue03/30/21 at 0833, PRN for SBP >160 for 2 consecutive measurements, if HR is 60 or greater. If beta amanuel is contraindicated (HR less than 60, heart block, COPD or asthma) use hydralazine IV order., PACU only lidocaine PF 1 % injection 1 mL 1 mL, Intradermal, ONCE PRN, IV start, Starting on Tue03/30/21 at 0629, For 1 dose, Pre-op (day of surgery) ondansetron (ZOFRAN) injection 4 mg 4 mg, Intravenous, ONCE PRN, Nausea, Starting on Tue03/30/21 at 0833, For 1 dose, Initial antiemetic therapy., PACU only promethazine (PHENERGAN) injection 6.25 mg 6.25 mg, Intravenous, ONCE PRN, Nausea, Starting on Tue03/30/21 at 0833, For 1 dose, Caution if used IV:Check IV site for infiltrate prior to and during administration. Secondary antiemetic therapy. For IV administration, dilute to 10ml with normal saline. Must be administered over at least 10 minutes., PACU only FOR RECORDS PERTAINING TO PATIENTS WHO ARE OR HAVE BEEN ENROLLED IN A CHEMICAL DEPENDENCY/SUBSTANCEABUSE PROGRAM, SOME INFORMATION MAY BE OMITTED. This clinical summary was aggregated from multiple sources. Caution should be exercised in using it in the provision of clinical care. This summary normalizes information from multiple sources, and as a consequence, information in this document may materially change the coding, format and clinical context of patient data. In addition, data may be omitted in some cases. CLINICAL DECISIONS SHOULD BE BASED ON THE PRIMARY CLINICAL RECORDS. [employer] provides no warranty or guarantee of the accuracy or completeness of information in this document.
== END | disposition home or self-care (01) ==
LOC: LAB 08:10
PROVIDERS: PCP Physician Assistant; Referring Provider Urology; Visit Provider Urology
DX: Z12.5 Encounter for screening for malignant neoplasm of prostate (principal)
CPT/HCPCS: 36415; 84153; G0103

== ENCOUNTER → 2023-12-12 | Outpatient (CLI) | payer MEDICARE, SELFPAY ==
--- NOTE | 2023-12-12 | PROSBIL_PTH ---
PATHOLOGY RESULTS PATIENT: CAMMY YANCEY LOC: [facility] U#:[id number] AGE/SX: 73/M ROOM: RE12/12/[address]: Dr. Young Huggins MD : 1950 BED: DIS: 12/12/2023 SPEC #: [id number] RECD: 12/13/23 08:52 STATUS: NORMA NORWOOD #: [id number] TORSTEN: 12/12/23 00:[address]: Young Huggins DEPT: SURGICAL PATHOLOGY RECD BY: Ajay Kee ENTERED: 12/13/23 08:53 SP TYPE: PROST BX NEMESIO DR: JOSE Perez Tissues: PROSTATE RIGHT PROSTATE RIGHT PROSTATE RIGHT PROSTATE LEFT PROSTATE LEFT PROSTATE LEFT Procedures: PROSTATE BX HEADER OPERATION: Prostate biopsy PRE-OP DIAGNOSIS: Elevated PSA TISSUE SUBMITTED: A - Right apex, B - Right mid, C - Right base, D - Left apex, E - Left mid, F - Left base MICROSCOPIC DIAGNOSIS A. Right prostate, apex, core biopsy: Prostatic adenocarcinoma. Erskine grade: 3+3=6 Number of cores involved: 3/3 Proportion of tissue involved: ~15% Perineural invasion: Present, focal. Greatest tumor length: 0.5 cm Focal high-grade prostatic intraepithelial neoplasia (HGPIN). B. Right prostate, mid, core biopsy: Focal high-grade prostatic intraepithelial neoplasia (HGPIN). See comment. C. Right prostate, base, core biopsy: Prostatic adenocarcinoma. Erskine grade: 3+3=6 Number of cores involved: 1/2 Proportion of tissue involved: <5% Perineural invasion: Not identified. Greatest tumor length: 0.4 cm, discontinuous. See comment. D. Left prostate, apex, core biopsy: Prostatic tissue, negative for malignancy. Focal mild chronic inflammation. E. Left prostate, mid, core biopsy: Prostatic tissue, negative for malignancy. Focal atrophy. F. Left prostate, base, core biopsy: Prostatic adenocarcinoma. Antwon grade: 3+4=7 Number of cores involved: 1/2 Proportion of tissue involved: <5% Perineural invasion: Not identified. Greatest tumor length: 0.2 cm Focal high-grade prostatic intraepithelial neoplasia (HGPIN). See comment. SJ:brittani 12/14/2023 COMMENT B, C & F - Immunohistochemistry ([id number]) supports the above diagnosis. Case has been reviewed in consultation with Dr. Thomas who concurs with the above diagnosis. IDC:AM MICROSCOPIC DESCRIPTION Slides are reviewed. GROSS DESCRIPTION A - Received is one container designated prostate, right apex. The specimen consists of three elongated fragments of light haji-white soft tissue measuring 1.0 to 1.8 cm in length and 0.1 cm in diameter. The specimen is totally submitted in one cassette. B - Received is one container designated prostate, right mid. The specimen consists of two elongated fragments of light haji-white soft tissue measuring 0.7 and 0.9 cm in length and 0.1 cm in diameter. The specimen is totally submitted in one cassette. C - Received is one container designated prostate, right base. The specimen consists of two elongated fragments of light haji-white soft tissue each measuring 0.6 cm in length and 0.1 cm in diameter. The specimen is totally submitted in one cassette. D - Received is one container designated prostate, left apex. The specimen consists of two elongated fragments of light haji-white soft tissue measuring 1.5 and 2.0 cm in length and 0.1 cm in diameter. The specimen is totally submitted in one cassette. E - Received is one container designated prostate, left mid. The specimen consists of two elongated fragments of light haji-white soft tissue measuring 0.7 and 1.2 cm in length and 0.1 cm in diameter. The specimen is totally submitted in one cassette. F - Received is one container designated prostate, left base. The specimen consists of two elongated fragments of light haji-white soft tissue measuring 1.2 and 1.3 cm in length and 0.1 cm in diameter. The specimen is totally submitted in one cassette. / PRECIOUS:brittani 12/13/2023 TC:0 CPT: G0146
--- NOTE | 2023-12-12 | IMM_PTH ---
PATHOLOGY RESULTS PATIENT: CAMMY YANCEY LOC: [facility] U#:[id number] AGE/SX: 73/M ROOM: RE12/12/[address]: Dr. Young Huggins MD : 1950 BED: DIS: 12/12/2023 SPEC #: [id number] RECD: 12/14/23 14:16 STATUS: NORMA RELm #: [id number] TORSTEN: 12/12/23 00:[address]: Young Huggins DEPT: IMMUNOHISTOCHEMISTRY RECD BY: Airam Lockhart ENTERED: 12/14/23 14:18 SP TYPE: IMMUNO OTHR DR: JOSE Perez Tissues: PROSTATE RIGHT PROSTATE RIGHT PROSTATE LEFT Procedures: 34BE12 (add) P40 (add) 34BE12 (initial) PHYSICIAN & INSTITUTION [place] [id number] SPECIMEN INFORMATION: Tissue Source: B - Right prostate, mid, C - Right prostate, base, F - Left prostate, base Clinical Info: Elevated PSA Specimen Number: [id number] B, C & F CPT code: 91204, 41408 x5 METHODOLOGY: Deparaffinized sections of prefer/formalin-fixed tissue or PAP/DQ stained slides are incubated with monoclonal/polyclonal antibodies/oligonucleotide probes. Localization is made via biotin free immunoperoxidase method. Appropriate controls are performed and reacted as expected. Results on target cell population are indicated in the following table: RESULTS: ANTIBODY / CLONE RESULT Block B P40 (BC28) positive 34BE12 (34BE12) positive Block C P40 (BC28) negative 34BE12 (34BE12) negative Block F P40 (BC28) negative * 34BE12 (34BE12) negative * *?Positive in the high-grade prostatic intraepithelial neoplasia. These tests were developed and their performance characteristics determined by [facility]. They may not have been cleared or approved by the U.S. Food and Drug Administration. The FDA has determined that such clearance or approval is not necessary. The above immunohistochemical/dualISH markers are ordered and reviewed by the Pathologist. INTERPRETATION: B. Right prostate, mid, core biopsy: Focal high-grade prostatic intraepithelial neoplasia (HGPIN). C. Right prostate, base, core biopsy: Adenocarcinoma. F. Left prostate, base, core biopsy: Adenocarcinoma. Focal high-grade prostatic intraepithelial neoplasia (HGPIN). This case has been reviewed in consultation with Dr. Thomas who concurs with the above diagnosis. SJ:brittani 12/15/2023
--- OUTSIDE RECORDS SUMMARY | 2023-12-12 19:49 | XMS RPT_ITS | CCD ---
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 Chemical Engineering Teacher Name Role Phone Orlando Magdaleno Seble Primary [...] 97.5 [degF] Dia Moyer MD Work Phone: [facility] Work Phone: 03-30-2021 09:17-0400 Diastolic blood pressure 77 mm[Hg] Dia Moyer MD Work Phone: [facility] Work Phone: 03-30-2021 09:17-0400 Heart rate 53 /min Dia Moyer MD Work Phone: [facility] Work Phone: 03-30-2021 09:17-0400 Respiratory rate 18 /min Dia Moyer MD Work Phone: [facility] Work Phone: 03-30-2021 09:17-0400 SaO2% (BldA) [Mass fraction] 99 % Dia Moyer MD [facility] Phone: [facility] Work Phone: 03-30-2021 09:17-0400 Systolic blood pressure 135 mm[Hg] Dia Moyer MD Work Phone: [facility] Work Phone: 03-30-2021 06:49-0400 Body height 170.2 cm Dia Moyer MD [facility] Phone: [facility] Work Phone: 03-30-2021 06:49-0400 Body mass index (BMI) [Ratio] 23.49 kg/m2 Dia Moyer MD Work Phone: [facility] Work Phone: 03-30-2021 06:49-0400 Body weight 68.04 kg Dia Moyer MD Work Phone: [facility] Work Phone: Encounters Encounter Date Encounter Type Care Provider Facility Start: 04-01-2023 ambulatory GILDA GUZMAN Facility:[facility] Start: 03-30-2021 End: 03-30-2021 Subsequent hospital visit by physician Dia Moyer MD Work Phone: [facility] Surgery Procedures Date Procedure Procedure Detail [...] neoplasm of colon Colon cancer screen colonoscopy [place], [place] Start: 04-06-2021 End: 04-06-2021 Patient encounter procedure 04/06/2021 Office Visit Sports Medicine Parveen Pinzon MD [address] [facility] [address] [place], [place] [id number] [facility] Orth[facility] Medicine [place] Start: 09-27-2020 HbA1c (Bld) [Mass fraction] A1C test (Diabetic or Prediabetic) [place], [place] Start: 09-27-2020 Hemoglobin A1c measurement A1C test (Diabetic or Prediabetic) [facility] Work Phone: Start: 08-29-2020 End: 08-29-2020 Office Visit 08/29/2020 Office Visit Orthopedic Surgery Jerald Hutchinson MD [address] [facility] [address] [place] [address] [phone] [facility] Orthopedics and Sports Medicine [place] Start: 06-10-2020 Influenza vaccination Flu vaccine (#1) [place], [place] Start: 01-28-2020 Creatinine measurement Creatinine monitoring [place], [place] Start: 01-28-2020 Diabetic microalbuminuria test Diabetic microalbuminuria test [place], [place] Start: 01-28-2020 Lipid panel Lipid screen [place], [place] Start: 01-28-2020 Potassium monitoring Potassium monitoring [place], [place] Start: 11-14-2019 Diabetic retinal exam Diabetic retinal exam [place], [place] Start: 07-18-2019 Diabetic foot examination Diabetic foot exam [place], [place] Start: 1999 Shingles Vaccine (1 of 2) Shingles Vaccine (1 of 2) [place], [place] Start: 1968 DTaP/Tdap/Td vaccine (1 - Tdap) DTaP/Tdap/Td vaccine (1 - Tdap) [place], [place] End: 03-30-2021 Intermittent pulse oximetry Pulse Oximetry Spot Check Respiratory Care Routine One Time for 1 Occurrences starting 03/30/2021 until 03/30/2021 [facility] Work Phone: Immunizations Immunization Date Immunization Notes Care Provider Fa cility 02-06-2019 pneumococcal polysac charide vaccine, 23 valent [place], [place] 08-02-2017 influenza, high dose seasonal, preservative-free [place], [place] 11-06-2016 Influenza Vaccine, unspecified formulation [place], [place] 10-27-2016 pneumococcal conjuga te vaccine, 13 valent [place], [place] Payers Date Payer Category Payer Unknown [facility] [id number] 2018-Present [phone] [address] [place] [address] Indemnity [id number] 2017 Unknown [id number] Social History Date Type Detail Facility Start: 08-05-2020 End: 03-30-2021 Tobacco smoking status NHIS Never smoker [place], [place] Start: 08-05-2020 End: 03-30-2021 Tobacco use and exposure Never used [place], [place] Start: 08-05-2020 Alcohol intake 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 (finding) [place], [place] Start: 1950 Sex Assigned At Not on file [place], [place] Start: 03-30-2021 Alcohol intake Current drinke r of alcohol (finding) [employer] Work Phone: Start: 03-30-2021 Alcohol Comment rarely [...] FoundDocuments on File Type Date Recorded 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 ACP-Advance Directive ACP-Power of Ophthalmologist Retina Specialist Documents on File Type Date Recorded 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 ACP-Advance Directive ACP-Power of Ophthalmologist Retina Specialist Latest Code Status on File Code Status [...] JT WO Contrast Jerald Hutchinson MD [address] [facility] [address] [place] [address] Assessments Diagnosis Tear of right rotator cuff, [...] DATE CREATED AUTHOR AUTHOR'S ORGANIZ ATION 08/22/2019 [employer] DATE CREATED AUTHOR AUTHOR'S ORGANIZ ATION 08/02/2020 [facility] DATE CREATED AUTHOR AUTHOR'S ORGANIZ ATION 08/29/2020 [facility] DATE CREATED AUTHOR AUTHOR'S ORGANIZ ATION 04/01/2021 [facility] DATE CREATED AUTHOR AUTHOR'S ORGANIZ ATION 04/02/2023 [facility] DATE CREATED AUTHOR AUTHOR'S ORGANIZ ATION 09/02/2023 [facility] Diagnostic s Scheduled Active and Recently Administ [...] BE BASED ON THE PRIMARY CLINICAL RECORDS. [employer] provides no warranty or guarantee of the accuracy or completeness of information in this document.
== END | disposition home or self-care (01) ==
LOC: LABSPEC 16:13
PROVIDERS: PCP Physician Assistant; Referring Provider Urology; Visit Provider Urology
DX: R97.20 Elevated prostate specific antigen [PSA] (principal)
CPT/HCPCS: 88305; 88341; 88342; G0416

== ENCOUNTER 2024-02-01 08:49 | Day surgery (SDC) | payer MEDICARE, SELFPAY ==
[2024-02-01] VITALS (7 sets, daily range): BP systolic 128–142; BP diastolic 77–93; PULSE 64–82; RESP 16–18; TEMP 36.3–36.5; O2SAT 92–100; BMI 25.5
[2024-02-01] MEDS: Lactated Ringers 1,000 ML 15 ML IV (09:28)
--- NOTE | 2024-02-01 09:30 | HP.PCM_ITS ---
HPI - General General Date of Service: 02/01/24 Chief Complaint: Prostate cancer HPI Narrative CAMMY YANCEY, is a 73 M who presents for placement of gold markers and spacer gel he is going to have treatment for his prostate cancer with radiation therapy COUNT INCLUDES THE [facility] Medical History (Updated 01/20/24 @ 13:50 by Jennifer Angela) Arthritis Back pain BPH (benign prostatic hyperplasia) Cancer Chronic cough CPAP (continuous positive airway pressure) dependence Diabetes mellitus Dietary restriction Easy bruising Elevated PSA Forgetfulness Frequency of micturition History of stress test Hyperlipemia Hypertension Leg cramps Loss of hearing Neuropathy Non-smoker OAB (overactive bladder) Post-void dribbling Prostate disease Restless legs Urgency of urination Wears glasses Wears hearing aid Wears partial dentures Home Medications amlodipine 5 mg tablet 5 mg PO DAILY 06/28/22 [History Last Taken 02/01/24] lisinopril 20 mg-hydrochlorothiazide 25 mg tablet 1 tab PO DAILY 06/28/22 [History Last Taken Unknown] simvastatin 20 mg tablet 20 mg PO QHS 06/28/22 [History Last Taken Unknown] glyburide 5 mg tablet 5 mg PO BID 12/29/23 [History Last Taken Unknown] metformin 500 mg tablet,extended release 24 hr 1,000 mg PO BID 12/29/23 [History Last Taken Unknown] oxybutynin chloride 10 mg tablet,extended release 24 hr 10 mg PO DAILY 12/29/23 [History Last Taken Unknown] tadalafil 10 mg tablet 10 mg PO DAILY PRN sexual activity 12/29/23 [History Last Taken Unknown] donepezil 5 mg tablet (Aricept) 5 mg PO QHS 01/03/24 [History Last Taken Unknown] pioglitazone 15 mg tablet 15 mg PO QHS 01/20/24 [History Last Taken Unknown] Allergy/AdvReac Type Severity Reaction Status Date / Time No Known Allergies Allergy Verified 02/01/24 09:12 Family History Other Breast cancer Heart disease Throat cancer Surgical History History of back surgery History of carpal tunnel surgery of left wrist History of carpal tunnel surgery of right wrist History of colonoscopy History of cystoscopy History of eye surgery History of fusion of lumbar spine Hx of arthroscopic knee surgery Hx of arthroscopic knee surgery Hx of left inguinal hernia repair Hx of repair of left rotator cuff Hx of repair of right rotator cuff Hx of right inguinal hernia repair Social History (Updated 01/03/24 @ 10:30 by Shell Devries) Smoking Status: Never smoker alcohol intake: current alcohol intake frequency: holidays/special occasions only substance use type: does not use Vital Signs Vital Signs Vital Signs: 02/01/24 09:15 02/01/24 09:15 Temperature 97.6 F L Temperature Source Temporal Pulse Rate 64 Respiratory Rate 16 Respiratory Pattern Normal Blood Pressure 142/77 H Blood Pressure Mean 98 Blood Pressure Source Monitor Blood Pressure Position Semi-Fowlers Blood Pressure Location Left Arm Pulse Ox 100 Oxygen Delivery Method Room Air Weight Weight: 74.1 kg Body Mass Index (BMI) 25.5
[2024-02-01 09:47] LABS: Bedside Glucose 121 mg/dL (74-106)
[2024-02-01] MEDS: Cefazolin 2 GM in 0.9% Normal Saline (100mL Bag) 100 ML IV (10:05)
--- NOTE | 2024-02-01 10:23 | DCINST_ITS ---
Discharge Instructions Diet Discharge Diet: No restrictions Activity Discharge Activity: Return to Normal Activity and May Not Drive (while taking narcotic pain medications.) Dressing / Incision Call your doctor if you observe: Fever of 101 or Higher Follow Up Care Please Follow Up With: Young Huggins MD When: Call [phone] for an appointment Test Results: Test results from this visit will be discussed in further detail at your follow- up appointment, if applicable. Discharge Plan Admission Attending Provider: Young Huggins Primary Care Provider: Orlando Magdaleno Discharge Orders/Prescriptions Prescriptions: No Action metformin 500 mg tablet extended release 24 hr 1,000 mg PO BID Patient Comments: TAKE 2 TABLETS BY MOUTH TWICE A DAY oxybutynin chloride 10 mg tablet extended release 24hr 10 mg PO DAILY Patient Comments: TAKE 1 TABLET BY MOUTH EVERY DAY tadalafil 10 mg tablet 10 mg PO DAILY PRN (Reason: sexual activity) Hold Instructions: PT REPORTS NOT TAKING Rx Instructions: administer approximately 30min before sexual activity; do not use more than 1 dose per 24hrs donepezil [Aricept] 5 mg tablet 5 mg PO QHS amlodipine 5 mg Tablet 5 mg PO DAILY simvastatin 20 mg Tablet 20 mg PO QHS lisinopril-hydrochlorothiazide 20-25 mg Tablet 1 tab PO DAILY glyburide 5 mg tablet 5 mg PO BID pioglitazone 15 mg tablet 15 mg PO QHS Referrals / Follow Up: Orlando Magdaleno PA [Primary Care Provider] - Disposition Disposition (needs filled in before D/C Order can be placed): Home, Self Care
--- NOTE | 2024-02-01 10:24 | OP.PCM_ITS ---
Report of Operation Date of Procedure: 02/01/24 Pre-Operative Diagnosis: Prostate cancer Post-Operative Diagnosis: The same Surgery/Procedure Performed:: Ultrasound-guided placement of spacer gel matrix and ultrasound-guided placement of gold markers Description of Surgical Findings:: Patient was taken back to the operating room at this with induction of anesthesia he was placed in dorsolithotomy position the perineum penis and testicles were prepped and draped in usual fashion the testicles were then elevated out of the way using a sterile towel I then placed an ultrasound probe into the rectum for transrectal ultrasound guidance through the perineum that I advanced a first gold wheel blocker and polisher into the right side of the prostate, and then I advanced a second gold wheel blocker and polisher in the left side prostate, and then the surgical marker in the right apex of the prostate after 3 core markers were placed then using the needle I advanced the needle into the space between the rectum and the prostate right below Denonvilliers' fascia once I was in the proper position and a puff of injectable saline was put in there to separate the space and then I injected 10 cc of the spacer gel matrix that was prepared in the back table per wash house supervisor's instructions after the injection was done there was very nice separation of the rectum and the prostate the rectum off the prostate and then I remove the needle we then cleaned the patient the patient anesthetic was reversed taken back to PACU good condition and is can prepare to get imaging and the simulation and then plan to have radiation therapy for his prostate cancer Surgeon: Young Huggins Type of Anesthesia: General Drains: none Estimated Blood Loss (mL): 0 Admit VTE Documentation VTE Present on Admission: No VTE Mechan Device Prophylaxis: SCD's VTE Pharm Prophylaxis ordered?: No
[2024-02-01 11:03] LABS: Bedside Glucose 107 mg/dL (74-106)
== END 2024-02-01 11:27 | disposition home or self-care (01) ==
LOC: SDC 08:51 → AC 08:52
PROVIDERS: PCP Physician Assistant; Referring Provider Urology; Visit Provider Urology
PROC: (CPT 55874; principal; 2024-02-01 10:40)
DX: C61 Malignant neoplasm of prostate (principal); E11.9 Type 2 diabetes mellitus without complications; Z80.3 Family history of malignant neoplasm of breast; Z80.8 Family history of malignant neoplasm of other organs or systems; R05.3 Chronic cough; R68.89 Other general symptoms and signs; E78.5 Hyperlipidemia, unspecified; R23.3 Spontaneous ecchymoses; Z98.1 Arthrodesis status; Z87.19 Personal history of other diseases of the digestive system
CPT/HCPCS: 55876; 00902; 82962; J7120; J2405

== ENCOUNTER → 2024-02-08 | Outpatient (CLI) | payer MEDICARE, SELFPAY ==
--- NOTE | 2024-02-08 09:25 | RAD_ITS ---
STUDY: X-RAY - ORBITS REASON FOR EXAM: Male, 73 years old. HX METAL TO EYES; PRE MRI TECHNIQUE: 2 view(s) of the orbits were obtained. COMPARISON: None. FINDINGS: Normal bilateral orbits without a metallic orbital foreign body. Normal visualized facial bones. Normal paranasal sinuses. The soft tissue structures are unremarkable. RAD/Orbits for Foreign Body IMPRESSION: No demonstrated metallic orbital foreign body. The patient is cleared for an MRI examination. Electronically Signed: Surya Lincoln MD at 9:34 EDT ,
--- NOTE | 2024-02-08 10:06 | MRI_ITS ---
STUDY: MR PROSTATE GLAND/ PELVIS WITH T WITHOUT CONTRAST REASON FOR EXAM: Male, 73 years old. define extent of disease -- planning for XRT TECHNIQUE: Standardized fat and water weighted pulse sequences were obtained in all 3 orthogonal planes, pre-and post contrast administration. IV 15cc clariscan was administered for the contrast portion of the examination. COMPARISON: CT of abdomen and pelvis dated June 04, 2022. CT of the abdomen and pelvis therapy planning study dated February 08, 2024 FINDINGS: Prostate gland volume/size: 4.57 x 4.7 x 3.51 cm. A moderate size fluid collection is present posterior to the prostate gland measuring 4.48 cm in diameter, which is favored to be secondary to recent surgical intervention or biopsy in this region. Multiple small rounded low density foci in the bilateral peripheral glands corresponds to brachytherapy seeds seen on the CT. The urethra is moderately dilated in the central aspect of the prostate gland at the bladder trigone junction. Anterior fibromuscular stroma: Intact. Peripheral zone: Diffusely heterogeneous and nodular. 9.3 mm lobular low signal nodule in the superior aspect of the left peripheral zone corresponds to bright diffusion-weighted signal and enhancement on the postcontrast study consistent with a malignant nodule. Moderate diffuse enhancement throughout the prostate gland parenchyma. Central zone: Diffusely heterogeneous and nodular Transitional zone: Diffusely heterogeneous and nodular Prostate capsule: Intact Seminal vesicles: Normal. Pelvic sidewall lymphadenopathy: Not present Bony structures: No lytic or blastic lesions of the bony structures. No marrow edema is present. Normal urinary bladder. Normal visualized small intestine. Normal visualized colon. There is no pelvic fluid. There is no pelvic mass lesion or lymphadenopathy. Normal abdominal wall. Small fat-containing left inguinal hernia noted. MRI/Pelvis W/WO Contrast IMPRESSION: 1. Diffusely heterogeneous and nodular. 9.3 mm lobular low signal nodule in the superior aspect of the left peripheral zone corresponds to bright diffusion-weighted signal and enhancement on the postcontrast study consistent with a malignant nodule. Moderate diffuse enhancement throughout the prostate gland parenchyma. 2. PI-RADS 4: high (clinically significant cancer is likely to be present) Reference information: Normal prostate tissue Benign prostatic hypertrophy cancer/tumor - low signal peripheral , transitional, and central zones malignancy appears as bright on DWI and low signal on ADC map Prostate imaging-reporting and data system (PI-RADS) PI-RADS 1: very low (clinically significant cancer is highly unlikely to be present) PI-RADS 2: low (clinically significant cancer is unlikely to be present) PI-RADS 3: intermediate (the presence of clinically significant cancer is equivocal) PI-RADS 4: high (clinically significant cancer is likely to be present) PI-RADS 5: very high (clinically significant cancer is highly likely to be present) PI-RADS X: component of exam technically inadequate or not performed Prostate malignancy distribution: Peripheral zone: 70-80% Transitional zone: 10-20% Central zone: 5% or less Electronically Signed: Rory Lind MD at 15:21 EDT Reading Location ID and State: [facility] / [place] , Service support ,
[2024-02-08 11:45] LABS: CREATININE FINGERSTICK < 1.0 mg/dL (0.70-1.30); EGFR FINGERSTICK > 60.0000 mL/min (>60)
== END | disposition home or self-care (01) ==
PROVIDERS: PCP Physician Assistant; Referring Provider Student in an Organized Health Care Education/Training Program; Visit Provider Student in an Organized Health Care Education/Training Program
DX: C61 Malignant neoplasm of prostate (principal)
CPT/HCPCS: 70030; 72197; A9575

== ENCOUNTER → 2024-04-16 | Outpatient (CLI) | payer MEDICARE, SELFPAY ==
[2024-04-16 11:43] LABS: PSA,Total- Diagnostic 0.09 ng/mL (0.0-4.0)
== END | disposition home or self-care (01) ==
LOC: LAB 09:18
PROVIDERS: PCP Physician Assistant; Visit Provider Urology
DX: C61 Malignant neoplasm of prostate (principal)
CPT/HCPCS: 36415; 84153

== ENCOUNTER → 2024-07-16 | Outpatient (CLI) | payer MEDICARE, SELFPAY ==
[2024-07-16 13:09] LABS: PSA,Total- Diagnostic 0.02 ng/mL (0.0-4.0)
== END | disposition home or self-care (01) ==
LOC: LAB 12:20
PROVIDERS: PCP Physician Assistant; Referring Provider Student in an Organized Health Care Education/Training Program; Visit Provider Student in an Organized Health Care Education/Training Program
DX: C61 Malignant neoplasm of prostate (principal)
CPT/HCPCS: 36415; 84153

== ENCOUNTER → 2024-10-22 | Outpatient (CLI) | payer MEDICARE, SELFPAY ==
[2024-10-22 16:39] LABS: PSA,Total- Diagnostic < 0.01 ng/mL (0.0-4.0)
== END | disposition home or self-care (01) ==
LOC: LAB 15:16
PROVIDERS: Student in an Organized Health Care Education/Training Program; PCP Physician Assistant; Referring Provider Urology; Visit Provider Urology
DX: C61 Malignant neoplasm of prostate (principal)

== ENCOUNTER → 2025-06-06 | Outpatient (CLI) | payer MEDICARE, SELFPAY ==
[2025-06-06 11:26] LABS: PSA,Total- Diagnostic 0.12 ng/mL (0.00-4.00)
== END | disposition home or self-care (01) ==
LOC: LAB 08:28
PROVIDERS: PCP Physician Assistant; Referring Provider Urology; Visit Provider Urology
DX: C61 Malignant neoplasm of prostate (principal)
CPT/HCPCS: 36415; 84153